=== PATIENT | female | born 1980 | race Native Hawaiian/Other Pacific Islander ===

== ENCOUNTER 2017-01-03 12:24 | Emergency (ER) | payer OTHER ==
[~2017-01-03] VITALS: Ht 160 cm; Wt 83.9 kg
[2017-01-03] MEDS ORDERED: ZIPR20CA PO (12:41)
[2017-01-03] MEDS ORDERED: PANTPAK PO (12:41)
[2017-01-03] MEDS ORDERED: CYCL10TA35 PO (12:42)
[2017-01-03] MEDS ORDERED: PROZAC10 MG PO (12:42)
[2017-01-03] MEDS ORDERED: LISI20TA11 PO (12:43)
[2017-01-03] MEDS ORDERED: LAMICTAL100 MG OR (12:43)
== END 2017-01-03 14:00 | disposition home or self-care (01) ==
LOC: ED 12:24
PROC: 3E1B78Z Irrigation of Ear using Irrigating Substance, Via Natural or Artificial Opening (ICD-10-PCS; principal; 2017-01-03)
PROC: 3E1B78Z Irrigation of Ear using Irrigating Substance, Via Natural or Artificial Opening (ICD-10-PCS; 2017-01-03)
DX: H61.23 Impacted cerumen, bilateral (principal); H60.593 Other noninfective acute otitis externa, bilateral
CPT/HCPCS: 99283

== ENCOUNTER 2017-03-08 10:42 | Emergency (ER) | payer OTHER ==
[~2017-03-08] VITALS: Ht 152.4 cm; Wt 88.5 kg
[~2017-03-08 10:42] MED LIST: CYCL10TA35 PO; LAMICTAL100 MG OR; LISI20TA11 PO; PANTPAK PO; PROZAC10 MG PO; ZIPR20CA PO
== END 2017-03-08 11:51 | disposition home or self-care (01) ==
LOC: ED 10:42
DX: L02.414 Cutaneous abscess of left upper limb (principal)
CPT/HCPCS: 99282